=== PATIENT | male | born 1980 | race Caucasian/White ===

== ENCOUNTER 2018-08-31 07:16 | Emergency (ER) | payer OTHER ==
[2018-08-31 07:42] VITALS: BP 134/92
--- NOTE | 2018-08-31 08:24 | UC ---
FLU HPI - HPI Summary HPI Summary: 38-year-old man presents with 1 month of sinus congestion, left ear pain, sore throat. He states he has been treated for sinusitis with 2 rounds of antibiotic. First, with Augmentin and then followed by [facility]. He has been on prednisone 50 mg as well. He has not seen his doctor as [place] out of town. He denies any fever but reports some lymphadenopathy, left sided facial swelling and left ear pain. He has no real cough. He has a history of testicular cancer that was treated without recurrence. - History of Current Complaint Chief Complaint: UCRespiratory Stated Complaint: SINUS ISSUE EAR PAIN Time Seen by Provider: 08/31/18 07:20 Hx Obtained From: Patient Pain Intensity: 6 Pain Scale Used: 0-10 Numeric - Allergy/Home Medications Allergies/Adverse Reactions: Allergies Allergy/AdvReac Type Severity Reaction Status Date / Time No Known Allergies Allergy Verified 08/31/18 07:42 Home Medications: Home Medications Venlafaxine EXT RELEASE CAP* [Effexor Xr CAP*] 225 mg PO DAILY 08/31/18 [ History Confirmed 08/31/18] clonazePAM TAB(*) [Klonopin TAB(*)] 4 mg PO DAILY 08/31/18 [History Confirmed ] PMH/Surg Hx/FS Hx/Imm Hx Previously Healthy: No - history of testicular cancer Cancer History: Other - testicular - Surgical History Surgical History: Yes Surgery Procedure, Year, and Place: R orchiectomy - Family History Known Family History: Positive: Non-Contributory - Social History Occupation: Employed Full-time Alcohol Use: None Substance Use Type: None Smoking Status (MU): Never Smoked Tobacco Review of Systems All Other Systems Reviewed And Are Negative: Yes Constitutional: Positive: Negative Skin: Positive: Negative Eyes: Positive: Negative ENT: Positive: Sore Throat, Ear Ache, Nasal Discharge, Sinus Congestion, Sinus Pain/Tenderness Respiratory: Negative: Cough Cardiovascular: Positive: Negative Motor: Positive: Negative Physical Exam Appearance: Well-Appearing, No Pain Distress, Well-Nourished Vital Signs: Initial Vital Signs Temp 97.7 F 08/31/18 07:26 Pulse 79 08/31/18 07:26 Resp 16 08/31/18 07:26 BP 134/92 08/31/18 07:26 Pulse Ox 95 08/31/18 07:26 Vital Signs Reviewed: Yes Eyes: Positive: Conjunctiva Clear ENT: Positive: Pharynx normal, Nasal congestion, Nasal drainage, TM dull - with serous effusion on L, Sinus tenderness. Negative: Pharyngeal erythema, Tonsillar swelling, Tonsillar exudate Neck: Positive: Nontender, Enlarged Nodes @ - R ant cervical Respiratory: Positive: Lungs clear Cardiovascular: Positive: RRR Abdomen Description: Positive: Nontender Musculoskeletal Exam: Normal Neurological Exam: Normal Psychological Exam: Normal Flu Course/Dx - Course Course Of Treatment: URI/Sinusitis with L serous effusion. Will add decongestant -- refer to ENT and start Levaquin. - Differential Dx/Diagnosis Differential Diagnosis/HQI/PQRI: Bronchitis, Broncholiolitis, Influenza, RSV, Upper Respiratory Infection Provider Diagnoses: Acute L sided maxillary sinusitis. Serous effusion L ear Discharge - Sign-Out/Discharge Documenting (check all that apply): Patient Departure All imaging exams completed and their final reports reviewed: No Studies - Discharge Plan Condition: Improved Disposition: HOME Prescriptions: Clindamycin Phos/Benzoyl Perox [Clinda-Benzoyl Perox 1-5% Pump] 50 gm .SEE ORDER DAILY #1 gel.w.pump Guaifenesin/Pseudo 600/60(NF) [Mucinex D 600/60 (NF)] 1 tab PO BID PRN #20 tab PRN Reason: Congestion Levofloxacin TAB* [Levaquin TAB*] 750 mg PO DAILY #7 tab Oxymetazoline 0.05% NASAL SPR* [Afrin 0.05% NASAL SPRAY*] 1 spray NASAL Q12H 3 Days #1 btl Patient Education Materials: Sinusitis (ED) Referrals: [facility] [Outside] Steve Velasquez MD [Medical Doctor] - Additional Instructions: Discontinue Afrin after 3 days' time. Return with high fever, worse, new symptoms or other concerns. Call your nose and throat doctor today. A referral hotline was given to obtain a local family doctor. - Billing Disposition and Condition Condition: IMPROVED Disposition: Home - Attestation Statements Document Initiated by Jack: No
== END 2018-08-31 07:56 | disposition home or self-care (01) ==
LOC: UCEAST 07:16
DX: J01.00 Acute maxillary sinusitis, unspecified (principal); H65.92 Unspecified nonsuppurative otitis media, left ear
CPT/HCPCS: 99202; G0463